=== PATIENT | female | born 2000 | race Hispanic/Latino ===

== ENCOUNTER 2024-09-05 16:50 | Emergency (ER) | payer OTHER ==
[~2024-09-05] VITALS: Ht 157.5 cm; Wt 72.1 kg
[~2024-09-05 16:50] MED LIST: ALBUTEROL PRN; PROAIR HFA INH8.5 GM INH; [UNRECOGNIZED DRUG - OTHER]
[2024-09-05 17:18] VITALS: TEMP 98.9
[2024-09-05] MEDS ORDERED: ALBUTEROL0.63 MG/3 NEB (17:30)
[2024-09-05 17:57] LABS: BASOPHILS % 0.2 % (0.0-1.0); EOSINOPHILS % 0.2 % (0.0-6.0); HEMATOCRIT 40.9 % (34.2-44.1); LYMPHOCYTES # (AUTO) 3.5 (1.0-3.2); LYMPHOCYTES % 26.3 % (18.0-39.1); MEAN CORPUSCULAR HGB CONC 31.8 g/dL (31-35); MEAN CORPUSCULAR VOLUME 91.1 fL (81-99); MONOCYTES # (AUTO) 0.6 (0.2-0.8); MONOCYTES % 4.7 % (4.4-11.3); NEUTROPHILS # (AUTO) 8.9 (2.1-6.9); NEUTROPHILS % 68.1 % (38.7-80.0); PLATELET COUNT 275 x10e3/uL (140-360); RED BLOOD COUNT 4.49 x10e6/uL (3.6-5.1); RED CELL DISTRIBUTION WIDTH 12.9 % (11.7-14.4); WHITE BLOOD COUNT 13.11 x10e3/uL (4.8-10.8)
[2024-09-05] MEDS ORDERED: IOPAMIDOL 370 MG/ML 100 ML INFUS..BTL INJ ONE (18:06)
[2024-09-05 18:12] LABS: ALBUMIN/GLOBULIN RATIO 1.2 (0.8-2.0); ANION GAP 14.5 mmol/L (8-16); BILIRUBIN,TOTAL 0.3 mg/dL (0.2-1.2); CALCIUM 9.8 mg/dL (8.4-10.2); CREATININE, SERUM 0.78 mg/dL (0.57-1.11); POTASSIUM 3.5 mmol/L (3.5-5.1); TOTAL PROTEIN 7.4 g/dL (6.5-8.1)
[2024-09-05 18:21] LABS: TROPONIN I < 0.001 ng/mL (0-0.300)
[2024-09-05] MEDS: KETOROLAC TROMETHAMINE 30 MG/ML VIAL IV STA (19:38)
[2024-09-05 20:22] VITALS: PULSE 84; RESP 19; O2SAT 100
[2024-09-05] MEDS ORDERED: PREDNISONE20 MG PO (20:30)
== END 2024-09-05 20:35 | disposition home or self-care (01) ==
LOC: ER 18:07
DX: R05.9 Cough, unspecified (principal); R79.1 Abnormal coagulation profile; U07.1 COVID-19; J45.909 Unspecified asthma, uncomplicated
CPT/HCPCS: 36415; 71260; 80053; 84484; 84702; 85025; 87400; 93005; 99284; J1885; Q9967; U0002